=== PATIENT | female | born 1950 | race Caucasian/White ===

== ENCOUNTER → 2020-05-12 | Emergency (ER) | payer OTHER, BC ==
[~2020-05-12] VITALS: Ht 162.6 cm; Wt 89.4 kg
[~2020-05-12] MED LIST: ATACAND32 MG; CELEBREX200MG PO; CRESTOR10 MG; ECOTRIN81 MG; HYDRODIURIL12.5 MG; TENORMIN50 M1; XANAX0.25 MG PO; ZYRTEC10 M3
== END | disposition home or self-care (01) ==
LOC: ER 11:23
DX: S83.8X2S Sprain of other specified parts of left knee, sequela (principal); X50.0XXS Overexertion from strenuous movement or load, sequela

== ENCOUNTER 2023-02-01 21:47 | Emergency (ER) | payer OTHER ==
[~2023-02-01] VITALS: Ht 157.5 cm; Wt 99.8 kg
== END 2023-02-01 22:42 | disposition home or self-care (01) ==
LOC: ER 21:47
DX: U07.1 COVID-19 (principal); Z88.0 Allergy status to penicillin; I10 Essential (primary) hypertension